=== PATIENT | male | born 2000 | race Two or more races ===

== ENCOUNTER 2023-09-24 06:57 | Emergency (ER) | payer SELFPAY ==
[~2023-09-24] VITALS: Ht 188 cm; Wt 120.5 kg
[2023-09-24] MEDS ORDERED: normal saline 1000ML IV soln IVB ONE (08:30)
[2023-09-24] MEDS ORDERED: levetiracetam inj 1,000 MG in normal saline 100ml IV soln 90 ML IV ONE (08:36)
[2023-09-24] MEDS ORDERED: levetiracetam inj 1,000 MG in normal saline 100ml IV soln 100 ML IV ONE (08:40)
[2023-09-24 08:52] LABS: BASOPHILS % (AUTO) 0.4 % (0-1); EOSINOPHILS # (AUTO) 0.1 X10'3 (0-0.9); HEMATOCRIT 43.3 % (42.0-52.0); HEMOGLOBIN 14.2 g/dl (14.0-17.9); LYMPHOCYTES # (AUTO) 2.3 X10'3 (1.1-4.8); LYMPHOCYTES % (AUTO) 33.6 % (21-51); MEAN CORPUSCULAR HEMOGLOBIN 28.4 PG (27.0-31.0); MEAN CORPUSCULAR HGB CONC 32.9 g/dL (33.0-36.5); MEAN CORPUSCULAR VOLUME 86.4 FL (78-98); MEAN PLATELET VOLUME 7.9 FL (7.4-10.4); MONOCYTES # (AUTO) 0.5 X10'3 (0-0.9); NEUTROPHILS # (AUTO) 3.9 X10'3 (1.8-7.7); PLATELET COUNT 233 X10'3 (140-440); RED BLOOD COUNT 5.01 X10'6 (4.70-6.10); RED CELL DISTRIBUTION WIDTH 13.9 % (11.5-14.5); WHITE BLOOD COUNT 6.8 X10'3 (4.5-11.0)
[2023-09-24 08:54] LABS: ALANINE AMINOTRANSFERASE 32 U/L (12-78); ALBUMIN/GLOBULIN RATIO 1.1 (1.1-1.5); ALKALINE PHOSPHATASE 49 IU/L (46-116); ANION GAP 13 (8-16); ASPARTATE AMINO TRANSFERASE 25 U/L (10-37); BILIRUBIN,TOTAL 0.5 MG/DL (0.1-1.0); BLOOD UREA NITROGEN 17 MG/DL (7-18); BUN/CREATININE RATIO 12.5 (10.0-20.0); CALCIUM 8.8 MG/DL (8.5-10.1); CHLORIDE 102 MMOL/L (99-107); CREATININE 1.36 MG/DL (0.60-1.10); ETHANOL < 10 MG/DL (<10); GLUCOSE 124 MG/DL (70-104); POTASSIUM 3.3 MMOL/L (3.5-5.1); SODIUM 140 MMOL/L (135-145); TOTAL CARBON DIOXIDE 24.9 MMOL/L (24-32); TOTAL PROTEIN 7.5 G/DL (6.4-8.2); eCRCL 99 ML/MIN; eGFR 66 ML/MIN
[2023-09-24 09:36] VITALS: PULSE 71
[2023-09-24] MEDS ORDERED: KEP500T PO (10:30)
[2023-09-24 10:47] VITALS: BP 106/53; RESP 14; TEMP 98.2; O2SAT 98
[2023-09-24 10:52] LABS: BILIRUBIN,URINE NEGATIVE (Neg); CLARITY,URINE CLEAR (Clear); COLOR,URINE STRAW (Yellow); GLUCOSE, URINE NEGATIVE (Neg); KETONES,URINE NEGATIVE (Neg); LEUKOCYTE ESTERASE ,URINE NEGATIVE (Neg); NITRITES, URINE NEGATIVE (Neg); OCCULT BLOOD,URINE NEGATIVE (Neg); PROTEIN,URINE NEGATIVE (Neg); UROBILINOGEN,URINE 0.2 E.U/dL (0.2-1.0)
[2023-09-24 11:10] LABS: UA COLLECTION TYPE NON-SPECIFIED
[2023-09-24 11:17] LABS: URINE AMPHETAMINE SCREEN NEGATIVE (Neg); URINE BARBITUATE SCREEN NEGATIVE (Neg); URINE BENZODIAZEPINES SCREEN NEGATIVE (Neg); URINE CANNABINOID SCREEN POSITIVE (Neg); URINE COCAINE SCREEN NEGATIVE (Neg); URINE METHADONE SCREEN NEGATIVE (Neg); URINE OPIATE SCREEN NEGATIVE (Neg); URINE PHENCYCLIDINE SCREEN NEGATIVE (Neg)
== END 2023-09-24 10:51 | disposition home or self-care (01) ==
LOC: ER 06:58
DX: G40.909 Epilepsy, unspecified, not intractable, without status epilepticus (principal); Z91.148 Patient's other noncompliance with medication regimen for other reason
CPT/HCPCS: 36415; 70450; 71045; 80053; 80305; 80320; 81003; 82140; 84484; 85025; 93005; 96365; 99285; J1953; J3490; J7030